=== PATIENT | male | born 1990 | race Caucasian/White ===

== ENCOUNTER 2017-12-14 08:52 | Observation (INO) | payer BC ==
[~2017-12-14] VITALS: Ht 185.4 cm; Wt 122.0 kg
[2017-12-14 08:59] VITALS: BP 171/88; PULSE 97; RESP 18; TEMP 97.7; O2SAT 98
[2017-12-14] MEDS ORDERED: MORPHINE SULFATE 2 MG/ML INJ IV PUSH ONE ×2 (09:00→11:00)
[2017-12-14] MEDS ORDERED: TETANUS/DIPHTHERIA TOXOID ADULT 0.5 ML VIAL IM ONE (09:00)
[2017-12-14] MEDS ORDERED: SODIUM CHLORIDE 0.9% FLUSH 10 ML FLUSH IV FLUSH PRN (09:00)
[2017-12-14] MEDS ORDERED: ceFAZolin 2 GM PREMIX 50 ML IV ONE (09:00)
[2017-12-14 09:02] VITALS: O2SAT 95
[2017-12-14] MEDS ORDERED: ceFAZolin 2 GM PREMIX 50 ML ONE (09:08)
--- NOTE | 2017-12-14 09:10 | PD ---
HPI Chief Complaint: Injury Time Seen by Provider: 08:59 Travel History International Travel<30 days: No Contact w/Intl Traveler<30days: No Traveled to known affect area: No History of Present Illness HPI 27-year-old male here for evaluation of right third finger injury that occurred 30 minutes prior to arrival. The patient reports he injured his finger on a wench cable. Pain is moderate to severe, constant. He denies any other injuries. He is right-hand dominant. [facility] Past Medical History Medical History: Denies Significant Hx Tetanus Vaccination: < 5 Years Social History Alcohol Use: Yes (occassinally ) Tobacco Use: Yes Substance Use: No Allergies-Medications (Allergen,Severity, Reaction): Coded Allergies: No Known Allergies (Unverified , 12/14/17) Reported Meds & Prescriptions Reported Meds & Active Scripts Active Reported Amoxicillin 500 Mg Cap 500 Mg PO TID Review of Systems Except as stated in HPI: all other systems reviewed are Neg Physical Exam Narrative GENERAL: Well-developed, well-nourished, pleasant, comfortable, no apparent distress. SKIN: Focused skin assessment warm/dry. HEAD: Atraumatic. Normocephalic. EYES: Pupils equal and round. No scleral icterus. No injection or drainage. ENT: No nasal bleeding or discharge. Mucous membranes pink and moist. CARDIOVASCULAR: Regular rate and rhythm. RESPIRATORY: No accessory muscle use. MUSCULOSKELETAL: Right third finger with 2 deep wounds, one over the PIP joint over the dorsal aspect of the finger, and one over the volar aspect slightly more proximal. The finger has obvious displacement and appears to be partially amputated. He is unable to flex or extend the finger. There is normal pinpoint sensation to this finger as well as capillary refill to the distal finger. The rest of his joints and extremities are without deformity, without tenderness, with normal range of motion. NEUROLOGICAL: Awake and alert. No obvious cranial nerve deficits. Motor grossly within normal limits. Normal speech. PSYCHIATRIC: Appropriate mood and affect; insight and judgment normal. Data Data Last Documented VS Vital Signs Date Time Temp Pulse Resp B/P (MAP) Pulse Ox O2 Delivery O2 Flow Rate FiO2 12/14/17 11:57 12/14/17 11:08 70 14 96 Room Air 12/14/17 08:59 97.7 Orders Orders Basic Metabolic Panel (Bmp) (12/14/17 08:59) Complete Blood Count With Diff (12/14/17 08:59) Prothrombin Time / Inr (Pt) (12/14/17 08:59) Act Partial Throm Time (Ptt) (12/14/17 08:59) Iv Access Insert/Monitor (12/14/17 08:59) Ecg Monitoring (12/14/17 08:59) Oximetry (12/14/17 08:59) Sodium Chloride 0.9% Flush (Ns Flush) (12/14/17 09:00) Morphine Inj (Morphine Inj) (12/14/17 09:00) Tetanus/Diphtheria Tox Adult (Tetanus/Di (12/14/17 09:00) Finger ([id number]) (12/14/17 ) Cefazolin 2 Gm Premix (Ancef 2 Gm Premix (12/14/17 09:00) Cefazolin 2 Gm Premix (Ancef 2 Gm Premix (12/14/17 09:08) Morphine Inj (Morphine Inj) (12/14/17 11:00) Acetaminophen 1000 Mg/100 Ml (Ofirmev 10 (12/14/17 11:44) Dexmedetomidine Inj (Precedex Inj) (12/14/17 11:54) Ketamine Inj (Ketalar Inj) (12/14/17 11:54) Ketamine Inj (Ketalar Inj) (12/14/17 11:54) Electrocardiogram (12/14/17 ) Hydromorphone Pf Inj (Dilaudid Pf Inj) (12/14/17 12:06) Bupivacaine Pf 0.25% Inj (Marcaine Pf 0. (12/14/17 12:09) Bupivacaine Pf 0.25% Inj (Marcaine Pf 0. (12/14/17 12:10) Neomycin-Polymyxin G.U. Irr (Neosporin G (12/14/17 12:13) Labs Laboratory Tests Test 12/14/17 09:04 White Blood Count 7.2 TH/MM3 Red Blood Count 5.41 MIL/MM3 Hemoglobin 16.3 GM/DL Hematocrit 45.9 % Mean Corpuscular Volume 84.9 FL Mean Corpuscular Hemoglobin 30.1 PG Mean Corpuscular Hemoglobin Concent 35.5 % Red Cell Distribution Width 13.0 % Platelet Count 288 TH/MM3 Mean Platelet Volume 6.9 FL Neutrophils (%) (Auto) 65.8 % Lymphocytes (%) (Auto) 21.4 % Monocytes (%) (Auto) 10.8 % Eosinophils (%) (Auto) 1.5 % Basophils (%) (Auto) 0.5 % Neutrophils # (Auto) 4.8 TH/MM3 Lymphocytes # (Auto) 1.5 TH/MM3 Monocytes # (Auto) 0.8 TH/MM3 Eosinophils # (Auto) 0.1 TH/MM3 Basophils # (Auto) 0.0 TH/MM3 CBC Comment DIFF FINAL Differential Comment Prothrombin Time 10.3 SEC Prothromb Time International Ratio 1.0 RATIO Activated Partial Thromboplast Time 28.9 SEC Blood Urea Nitrogen 13 MG/DL Creatinine 0.86 MG/DL Random Glucose 100 MG/DL Calcium Level 8.9 MG/DL Sodium Level 140 MEQ/L Potassium Level 3.7 MEQ/L Chloride Level 109 MEQ/L Carbon Dioxide Level 22.2 MEQ/L Anion Gap 9 MEQ/L Estimat Glomerular Filtration Rate 107 ML/MIN MDM Medical Decision Making Medical Screen Exam Complete: Yes Emergency Medical Condition: Yes Differential Diagnosis Open finger fracture/dislocation, partial amputation Narrative Course Case discussed with hand/plastic surgeon Dr. Rivera shortly after the patient arrived to the emergency department and will present to the emergency department to evaluate the patient. Patient was provided 2 g of Ancef, tetanus, and morphine. Right third finger x-ray: CONCLUSION: 1. #2 fractures of the third middle and proximal phalanges. Distracted avulsion fracture fragment off the base of the middle phalanx. 11:15 AM: The patient was evaluated by Dr. Rivera who plans to take the patient to the operating room for repair of open right third finger fracture dislocation. He would like the patient to be admitted to the medical service. Case discussed with hospitalist Dr. Liao who will admit the patient to her service. Diagnosis Primary Impression: Fracture of unspecified phalanx of right middle finger, initial encounter for open fracture Admitting Information Admitting Physician Requests: Admit Nilesh Alvarado MD Dec 14, 2017 09:10
[2017-12-14 09:23] LABS: AUTOMATED NEUTROPHIL # 4.8 TH/MM3 (1.8-7.7); BASOPHIL % 0.5 % (0.0-2.0); EOSINOPHIL # 0.1 TH/MM3 (0-0.4); EOSINOPHIL % 1.5 % (0.0-4.0); HEMATOCRIT 45.9 % (39.0-51.0); HEMOGLOBIN 16.3 GM/DL (13.0-17.0); LYMPH % 21.4 % (9.0-44.0); LYMPHOCYTE # 1.5 TH/MM3 (1.0-4.8); MEAN CELL VOLUME 84.9 FL (80.0-100.0); MEAN CORPUSCULAR HEMOGLOBIN 30.1 PG (27.0-34.0); MEAN CORPUSCULAR HGB CONC 35.5 % (32.0-36.0); MEAN PLATELET VOLUME 6.9 FL (7.0-11.0); MONO % 10.8 % (0.0-8.0); MONOCYTE # 0.8 TH/MM3 (0-0.9); NEUT % 65.8 % (16.0-70.0); PLATELET COUNT 288 TH/MM3 (150-450); RED BLOOD COUNT 5.41 MIL/MM3 (4.50-5.90); WHITE BLOOD COUNT 7.2 TH/MM3 (4.0-11.0)
[2017-12-14 09:30] LABS: PROTHROMBIN TIME - PATIENT 10.3 SEC (9.8-11.6)
[2017-12-14 09:38] LABS: BICARBONATE 22.2 MEQ/L (21.0-32.0); CALCIUM 8.9 MG/DL (8.5-10.1); CREATININE 0.86 MG/DL (0.60-1.30)
--- NOTE | 2017-12-14 09:52 | RADRPT ---
EXAM DATE/TIME: 12/14/2017 09:26 [place] COMPARISON: No previous studies available for comparison. INDICATIONS : Pain and swelling from mechanical injury. MEDICAL HISTORY : None. SURGICAL HISTORY : Hand surgery. ENCOUNTER: Initial ACUITY: 1 day PAIN SCORE: 10/10 LOCATION: Right 3rd digit. FINDINGS: AP, lateral and oblique views of the right or digit were obtained and demonstrate a mildly comminuted fracture deformity third proximal phalanx with multiple fracture lines. There is also a mildly commi nuted fracture of the middle phalanx as well which is nondisplaced. There is an avulsion type fractur e fragments off the dorsal base of the middle phalanx which is displaced approximately 5 mm and is ro tated. The distal phalanx is intact. There is overlying soft tissue swelling. There is a screw-plate fixation device in the fourth digit. CONCLUSION: 1. #2 fractures of the third middle and proximal phalanges. Distracted avulsion fracture fragment off the base of the middle phalanx. Stanley Larsen MD on December 14, 2017 at 9:47 Board Certified Radiologist. This report was verified electronically.
[2017-12-14] MEDS ORDERED: AMOX500C PO (10:02)
[2017-12-14 11:08] VITALS: BP 130/73; PULSE 70; RESP 14; O2SAT 96
[2017-12-14] MEDS ORDERED: ACETAMINOPHEN 1000 MG/100 ML 100 ML IV ONE (11:44)
[2017-12-14] MEDS ORDERED: DEXMEDETOMIDINE HCL 200 MCG/2 ML VIAL ONE (11:54)
[2017-12-14] MEDS ORDERED: KETAMINE HCL 10 MG/5 ML SYRINGE IV PUSH ONE ×2 (11:54)
[2017-12-14] MEDS ORDERED: ceFAZolin INJ 1,000 MG VIAL IV ONE (12:00)
[2017-12-14] MEDS ORDERED: LACTATED RINGER'S 1000 ML INJ 1,000 ML IV ONE (12:00)
[2017-12-14] MEDS ORDERED: PHENYLEPH/NS 1000 MCG/10 ML SYR IV ONE (12:00)
[2017-12-14] MEDS ORDERED: ONDANSETRON HCL 4 MG/2 ML VIAL IV ONE (12:00)
[2017-12-14] MEDS ORDERED: NEOSTIGMINE 5 MG/5 ML SYRINGE IV PUSH ONE (12:00)
[2017-12-14] MEDS ORDERED: SODIUM CHLORIDE 0.9% 20 ML VIAL IV ONE (12:00)
[2017-12-14] MEDS ORDERED: ROCURONIUM INJ 50 MG/5 ML SYRINGE IV PUSH ONE (12:00)
[2017-12-14] MEDS ORDERED: LIDOCAINE HCL 1% PF 5 ML SYRINGE OTHER ONE (12:00)
[2017-12-14] MEDS ORDERED: PROPOFOL 200 MG/20 ML AMP IV ONE (12:00)
[2017-12-14] MEDS ORDERED: ePHEDrine/NS 25 MG/5 ML SYRINGE IV ONE (12:00)
[2017-12-14] MEDS ORDERED: DEXAMETHASONE SOD PHOS 4 MG/ML VIAL IV ONE (12:00)
[2017-12-14] MEDS ORDERED: GLYCOPYRROLATE 1 MG/5 ML SYRINGE IV PUSH ONE (12:00)
[2017-12-14] MEDS ORDERED: HYDROmorphone HCL PF 2 MG/ML VIAL ONE (12:06)
[2017-12-14] MEDS ORDERED: BUPIVACAINE HCL PF 0.25% 30 ML VIAL ONE ×3 (12:09→12:20)
[2017-12-14] MEDS ORDERED: NEOMYCIN/POLYMYXIN 1 ML G.U. IRRIGANT ONE (12:13)
[2017-12-14] MEDS ORDERED: BACITRACIN TOP OINT 15 GM TUBE ONE (14:22)
[2017-12-14] MEDS ORDERED: CEFAZOLIN INJ 2,000 MG in SODIUM CHLORIDE 0.9% INJ 100 ML IV ONE (15:00)
[2017-12-14] MEDS ORDERED: DO NOT ADM ANY ANTICOAGULANT DRUGS PRN (15:35)
[2017-12-14] MEDS ORDERED: MIDAZOLAM HCL 2 MG/2 ML VIAL ONE (15:38)
[2017-12-14] MEDS ORDERED: MORPHINE SULFATE 2 MG/ML INJ IV PRN (16:00)
[2017-12-14] MEDS ORDERED: ONDANSETRON HCL 4 MG/2 ML VIAL IV PUSH PRN (16:00)
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
[2017-12-14 19:14] VITALS: BP 129/63; PULSE 58; RESP 18; TEMP 97.4; O2SAT 96
[2017-12-14] MEDS: ACETAMINOPHEN/HYDROcodone 325 MG/5 MG TAB PO PRN ×2 (19:18→23:11)
[2017-12-14 23:15] VITALS: BP 132/54; PULSE 62; RESP 18; TEMP 97.1; O2SAT 95
[2017-12-15] MEDS: ACETAMINOPHEN/HYDROcodone 325 MG/5 MG TAB PO PRN ×4 (03:33→16:55)
[2017-12-15 03:34] VITALS: BP 125/65; PULSE 83; RESP 18; TEMP 98; O2SAT 96
--- NOTE | 2017-12-15 07:37 | HHI.PR ---
Subjective Remarks pain controlled no complains Objective Vitals Vital Signs Date Time Temp Pulse Resp B/P (MAP) Pulse Ox O2 Delivery O2 Flow Rate FiO2 12/15/17 06:45 Room Air 12/15/17 04:15 18 12/15/17 03:34 98.0 83 18 125/65 (85) 96 12/14/17 23:15 97.1 62 18 132/54 (80) 95 12/14/17 19:14 97.4 58 18 129/63 (85) 96 12/14/17 16:15 98.4 63 17 126/68 (87) 96 Nasal Cannula 2 12/14/17 16:00 72 17 125/60 (81) 96 Nasal Cannula 2 12/14/17 15:45 76 17 123/57 (79) 94 Nasal Cannula 3 12/14/17 15:32 98.4 73 17 125/58 (80) 94 Nasal Cannula 3 12/14/17 11:57 12/14/17 11:08 70 14 130/73 (92) 96 Room Air 12/14/17 09:02 (115) 95 Room Air 12/14/17 08:59 97.7 97 18 171/88 (115) 98 Room Air I/O 12/14/17 12/14/17 12/14/17 12/15/17 12/15/17 12/15/17 07:00 15:00 23:00 07:00 15:00 23:00 Intake Total 1800 ml 580 ml Output Total 10 ml Balance 1790 ml 580 ml Intake Oral 480 ml IV Total 1800 ml 100 ml Output Estimated Blood Loss 10 ml # Voids 3 # Bowel Movements 0 Result Diagram: 12/14/17 0904 12/14/17 0904 Imaging Last Impressions Finger X-Ray 12/14/17 0000 Signed Impressions: Service Date/Time: Thursday, December 14, 2017 09:26 - CONCLUSION: 1. #2 fractures of the third middle and proximal phalanges. Distracted avulsion fracture fragment off the base of the middle phalanx. Stanley Larsen MD Objective Remarks awake and alert lungs clear right UE- post op dressing in place Procedures 12/14 S/P ORIF with PCN pinning of right middle finger and proximal phalangeal joint with flexor tendon repair - 12/14 A/P Assessment and Plan 27 year old right handed male who injured his right middle finger on a wench cable S/P ORIF with PCN pinning of right middle finger and proximal phalangeal joint with flexor tendon repair - 12/14 - Hand surgery following. - IV Ancef per Hand surgery - prn pain meds - diet as tolerated - Incentive spirometry hourly Early ambulation - up and ambulating SCDs while in bed. Dc today if cleared with Hand surgery with DC instructions and ff up patient is from [facility]; cleared for DC per hand surgery - Keflex 500 mg po q 8 x 10 days [place] 7.5 1 tab po q 6 prn for pain OP ff up with Hand surgery in 1 week Keep dressing intact till ff up diet as tolerated activity as tolerated Kayla Liao MD Dec 15, 2017 07:37
[2017-12-15 07:59] VITALS: BP 110/53; PULSE 67; RESP 17; TEMP 97; O2SAT 98
--- NOTE | 2017-12-15 09:10 | EKG ---
Date Performed: 12/14/2017 Time Performed: 11:47:48 PTAGE: 27 years EKG: JUNCTIONAL RHYTHM MODERATE VOLTAGE CRITERIA FOR LVH, CONSIDER NORMAL VARIANT ABNORMAL RHYTH M ECG NO PREVIOUS TRACING DOCTOR: Kulwinder Sloan Interpretating Date/Time 12/15/2017 09:08:22
[2017-12-15] MEDS ORDERED: INFLUENZA VIRUS VACCINE (QUADRIVALENT) 0.5 ML SYR IM ONE (10:00)
[2017-12-15 11:37] VITALS: BP 120/56; PULSE 62; RESP 18; TEMP 97.8; O2SAT 97
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
[2017-12-15] MEDS ORDERED: HYDR-3288 PO ×2 (15:46→16:00)
[2017-12-15] MEDS ORDERED: CEPH500C PO (15:50)
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
== END 2017-12-15 17:08 | disposition home or self-care (01) ==
LOC: NEPE 09:34 → UNDOADMOB 12:19 → NEDA 12:19 → N06A 16:37 → NEDA 16:37 → UNDODISOB 12-15 17:08
PROVIDERS: ADMIT Internal Medicine; ATTEND Internal Medicine
DX: S62.612B Displaced fracture of proximal phalanx of right middle finger, initial encounter for open fracture (principal); S66.322A Laceration of extensor muscle, fascia and tendon of right middle finger at wrist and hand level, initial encounter; W23.1XXA Caught, crushed, jammed, or pinched between stationary objects, initial encounter; M20.021 Boutonniere deformity of right finger(s); F17.210 Nicotine dependence, cigarettes, uncomplicated; Z23 Encounter for immunization; R94.31 Abnormal electrocardiogram [ECG] [EKG]
CPT/HCPCS: 01810; 01820; 13121; 26418; 26727; 73140; 76000; 80048; 85025; 85610; 85730; 90471; 90714; 93005; 96365; 96366; 96375; 96376; 99285; G0378; J0131; J0690; J1100; J2250; J2270; J2370; J2405; J2710; J3010; J7120; J1170